=== PATIENT | male | born 1995 | race Caucasian/White ===

== ENCOUNTER 2019-02-19 00:32 | Emergency (ER) | payer OTHER ==
[2019-02-19] MEDS ORDERED: ALPRAZolam TAB* 0.5 MG PO ONE (01:55)
--- NOTE | 2019-02-19 02:05 | ED ---
Headache - HPI Summary HPI Summary: This pt is a 23 y/o M presenting to [facility] accompanied by his girlfriend with a CC of migraine like symptoms. He states that he has been having vertigo, dizziness, blurry vision, back pain, shivering, and neck pain. He states that this symptoms are similar to his migraines but without the headache symptoms. He also denies any fevers, SOB, and CP. He states that he has a Hx of migraines that happen on his L side. On 02/17/19 and 02/18/19 he had a migraine on the R side instead and it was more intense. He denies any aggravating or alleviating symptoms. - History Of Current Complaint Chief Complaint: EDHeadache Stated Complaint: MENINGITIS SYMPTOMS PER PT Time Seen by Provider: 02/19/19 01:42 Hx Obtained From: Patient Last Known Well Date: 02/16/19 Onset/Duration: Gradual Onset, Still Present Initially Headache Was: Mild Currently Pain Is: Current Pain Scale(0-10)= - 0 Timing: Constant Character: Migraine Location of Headache: Temporal - R Aggravating Factor: Nothing Allevating Factors: Nothing Associated Signs And Symptoms: Negative - fevers, SOB, and CP, Neck Pain, Visual Changes - blurry, Other (Noted In Comments) - POSITIVE: back pain, shivering, - Allergies/Home Medications Allergies/Adverse Reactions: Allergies Allergy/AdvReac Type Severity Reaction Status Date / Time No Known Allergies Allergy Verified 02/19/19 00:39 Home Medications: Home Medications NK [No Home Medications Reported] 02/19/19 [History Confirmed 02/19/19] PMH/Surg Hx/FS Hx/Imm Hx Previously Healthy: Yes Endocrine/Hematology History: Denies: Hx Diabetes Cardiovascular History: Denies: Hx Atrial Fibrillation Respiratory History: Reports: Hx Asthma Neurological History: Reports: Hx Migraine Psychiatric History: Reports: Hx Anxiety, Hx Depression - Surgical History Surgery Procedure, Year, and Place: lung cancer surgery 2017 Infectious Disease History: No Infectious Disease History: Denies: Traveled Outside the [place] in Last 30 Days - Family History Known Family History: Positive: Other - AVM mother - Social History Occupation: Employed Full-time Lives: With Family Alcohol Use: None Hx Substance Use: Yes Substance Use Type: Reports: Cocaine - [id number], Marijuana, Other Hx Tobacco Use: Yes Smoking Status (MU): Former Smoker Type: Cigarettes Amount Used/How Often: 4-5 cigarettes per day, quit 2 years ago Review of Systems Positive: Chills. Negative: Fever Positive: Blurred Vision Positive: Other - neck pain, vertigo Negative: Chest Pain Negative: Shortness Of Breath Positive: Other - back pain Neurological: Other - dizziness Positive: Headache All Other Systems Reviewed And Are Negative: Yes Physical Exam - Summary Physical Exam Summary: VITAL SIGNS: Reviewed. GENERAL: Patient is a well-developed and nourished male who is lying comfortable in the stretcher. Patient is not in any acute respiratory distress. HEAD AND FACE: No signs of trauma. No ecchymosis, hematomas or skull depressions. No sinus tenderness. EYES: PERRLA, EOMI x 2, No injected conjunctiva, no nystagmus. EARS: Hearing grossly intact. Ear canals and tympanic membranes are within normal limits. MOUTH: Oropharynx within normal limits. NECK: Supple, trachea is midline, no adenopathy, no JVD, no carotid bruit, no c- spine tenderness, neck with full ROM CHEST: Symmetric, no tenderness at palpation LUNGS: Clear to auscultation bilaterally. No wheezing or crackles. CVS: Regular rate and rhythm, S1 and S2 present, no murmurs or gallops appreciated. ABDOMEN: Soft, non-tender. No signs of distention. No rebound no guarding, and no masses palpated. Bowel sounds are normal. EXTREMITIES: FROM in all major joints, no edema, no cyanosis or clubbing. NEURO: Alert and oriented x 3. No acute neurological deficits. Speech is normal and follows commands. SKIN: Dry and warm PSYCH: pt is anxious Triage Information Reviewed: Yes Vital Signs On Initial Exam: Initial Vitals Temp Pulse Resp BP Pulse Ox 98.9 F 78 16 165/108 99 02/19/19 00:32 02/19/19 00:32 02/19/19 00:32 02/19/19 00:32 02/19/19 00:32 Vital Signs Reviewed: Yes Diagnostics - Vital Signs Vital Signs Temp Pulse Resp BP Pulse Ox 02/19/19 00:32 98.9 F 78 16 165/108 99 - Laboratory Lab Statement: Any lab studies that have been ordered have been reviewed, and results considered in the medical decision making process. Headache Course/Dx - Course Course Of Treatment: This pt is a 24 y/o M presenting to [facility] with a CC of migraine-like symptoms without a headache today. He states that he has been suffering from vertigo, dizziness, blurry vision, back pain, shivering, and neck pain since 02/17/19. His PE shows that he is anxious. He was given Xanax during his ED course and stated that he felt better. He will be discharged with a Dx of anxiety and instructed to follow up with his PCP in 2-3 days. - Diagnoses Provider Diagnoses: Anxiety Discharge - Sign-Out/Discharge Documenting (check all that apply): Patient Departure - D/C Home Patient Received Moderate/Deep Sedation with Procedure: No - Discharge Plan Condition: Stable Disposition: HOME Patient Education Materials: Anxiety (ED) Referrals: [facility] [Outside] - 2 Days Additional Instructions: Please follow up with [facility] in 2-3 days and return to the emergency department for any new or worsening symptoms. - Billing Disposition and Condition Condition: STABLE Disposition: Home - Attestation Statements Document Initiated by Niharikae: Yes Documenting Scribe: Herminio Matson Provider For Whom Irving is Documenting (Include Credential): Claudio Vazquez MD Scribe Attestation: IHerminio, scribed for Claudio Vazquez MD on 02/19/19 at 0405. Scribe Documentation Reviewed: Yes Provider Attestation: The documentation as recorded by the Herminio shine accurately reflects the service I personally performed and the decisions made by me, Claudio Vazquez MD Status of Scribe Document: Viewed
[2019-02-19 03:46] VITALS: BP 142/78
== END 2019-02-19 03:45 | disposition home or self-care (01) ==
LOC: ED 00:32
DX: F41.9 Anxiety disorder, unspecified (principal); M54.9 Dorsalgia, unspecified; R68.83 Chills (without fever); R42 Dizziness and giddiness; M54.2 Cervicalgia; H53.8 Other visual disturbances; Z87.891 Personal history of nicotine dependence
CPT/HCPCS: 99282; A9270-GY